=== PATIENT | female | born 1960 | race Caucasian/White ===

== ENCOUNTER 2022-03-04 06:46 | Day surgery (SDC) | payer OTHER ==
[~2022-03-04] VITALS: Ht 160 cm; Wt 105.0 kg
[~2022-03-04 06:46] MED LIST: SODIUM CHLORIDE 0.9% 1,000 ML ONE
[2022-03-04] MEDS ORDERED: LIDOCAINE 4% 50 ML SOLUTION TP ONE (06:47)
[2022-03-04] MEDS ORDERED: BENZOCAINE 20% 50 MCG/SPRAY 57 GM TP ONE (06:47)
[2022-03-04] MEDS ORDERED: LIDOCAINE 2% 11 ML JELLY TP ONE (06:47)
[2022-03-04] MEDS ORDERED: ALBUTEROL SULFATE 2.5 MG/0.5 ML NEB SOLUTION NEB ONE (06:47)
[2022-03-04 07:08] LABS: COVID AG,FIA SOURCE NASAL SWAB
[2022-03-04] MEDS ORDERED: FentaNYL CITRATE PF 100 MCG/2 ML VIAL ONE (07:51)
[2022-03-04] MEDS ORDERED: MIDAZOLAM HCL 5 MG/ML VIAL ONE (07:52)
[2022-03-04] MEDS ORDERED: SODIUM CHLORIDE 0.9% 1,000 ML IV ONE (08:00)
[2022-03-04 08:01] LABS: GLUCOMETER DEV NAME(LOC) SDS.; GLUCOSE,POINT OF CARE 170 MG/DL (70-110)
[2022-03-04] MEDS ORDERED: ATOR40TA28 PO (08:01)
[2022-03-04] MEDS ORDERED: HYDR25TA2 PO (08:01)
[2022-03-04] MEDS ORDERED: MONT-35 PO (08:01)
[2022-03-04] MEDS ORDERED: DULA3PEN SQ (08:01)
[2022-03-04] MEDS ORDERED: ESCI-8 PO (08:01)
[2022-03-04] MEDS ORDERED: LEVO100 PO (08:01)
[2022-03-04] MEDS ORDERED: FLUT16H NASAL (08:01)
[2022-03-04] MEDS ORDERED: LORA10TA7 PO (08:01)
[2022-03-04] MEDS ORDERED: FURO20 PO (08:01)
[2022-03-04] MEDS ORDERED: LISI-893 PO (08:01)
[2022-03-04] MEDS ORDERED: ALBU8HFA IH (08:01)
[2022-03-04] MEDS ORDERED: MethylPREDNISolone SOD SUCC 125 MG/2 ML VIAL IVP ONE (09:15)
[2022-03-04] MEDS ORDERED: MethylPREDNISolone SOD SUCC 125 MG/2 ML VIAL ONE (10:02)
[2022-03-04] MEDS ORDERED: OXYGEN THERAPY IH SCH (20:00)
== END 2022-03-04 11:10 | disposition home or self-care (01) ==
LOC: SURGERY 06:46
PROVIDERS: ATTEND Internal Medicine Critical Care Medicine
DX: J38.4 Edema of larynx (principal); E03.9 Hypothyroidism, unspecified; B37.0 Candidal stomatitis; Z79.899 Other long term (current) drug therapy; Z98.890 Other specified postprocedural states
CPT/HCPCS: 31623; 82962; 87206; 87101; 87220; 87070; 88108; 88305; 88312; 31624; 94640; 71045; 87015; 87426; J3010; J2930; J2250; Q9967; J7030; C9803; J7613; Z7610

== ENCOUNTER 2024-05-17 06:34 | Day surgery (SDC) | payer OTHER ==
[~2024-05-17] VITALS: Ht 160 cm; Wt 100.0 kg
[~2024-05-17 06:34] MED LIST changes: +ALBU18HF12 IH; +ATOR40TA28 PO; +ESCI-8 PO; +FLUT16SP NASAL; +FURO20TA5 PO; +HYDR25TA2 PO; +LEVO100 PO; +LISI-893 PO; +MONT-35 PO
[2024-05-17] MEDS ORDERED: ALBUTEROL SULFATE 2.5 MG/0.5 ML NEB SOLUTION NEB ONE (06:35)
[2024-05-17] MEDS ORDERED: LIDOCAINE 4% 50 ML SOLUTION TP ONE (06:35)
[2024-05-17] MEDS ORDERED: BENZOCAINE 20% 50 MCG/SPRAY 57 GM TP ONE (06:35)
[2024-05-17] MEDS ORDERED: LIDOCAINE 2% 11 ML JELLY TP ONE (06:35)
[2024-05-17 07:41] LABS: GLUCOMETER DEV NAME(LOC) SDS.; GLUCOSE,POINT OF CARE 158 MG/DL (70-110)
[2024-05-17] MEDS: SODIUM CHLORIDE 0.9% 1,000 ML IV ONE (08:00)
[2024-05-17] MEDS ORDERED: EPINEPHrine 1:10,000 [1 MG/10 ML] SYRINGE ONE (08:11)
[2024-05-17] MEDS ORDERED: NALOXONE HCL 0.4 MG/ML VIAL ONE (08:11)
[2024-05-17] MEDS ORDERED: SODIUM TETRADECYL SULFATE 3% 60 MG/2 ML VIAL IVP ONE (08:11)
[2024-05-17] MEDS ORDERED: DiphenhydrAMINE HCL 50 MG/ML VIAL ONE (08:11)
[2024-05-17] MEDS ORDERED: FLUMAZENIL 0.1 MG/ML 5 ML VIAL IVP ONE (08:11)
[2024-05-17] MEDS ORDERED: ATROPINE SULFATE 0.1 MG/ML 10 ML SYRINGE IVP ONE (08:12)
[2024-05-17] MEDS ORDERED: MIDAZOLAM HCL 2 MG/2 ML VIAL ONE (08:37)
[2024-05-17] MEDS ORDERED: FentaNYL CITRATE PF 100 MCG/2 ML VIAL ONE (08:37)
[2024-05-17 09:28] VITALS: PULSE 77; RESP 18; O2SAT 98
[2024-05-17] MEDS ORDERED: MethylPREDNISolone SOD SUCC 125 MG/2 ML VIAL ONE (09:49)
[2024-05-17] MEDS: MethylPREDNISolone SOD SUCC 125 MG/2 ML VIAL IVP ONE (09:51)
== END 2024-05-17 10:50 | disposition home or self-care (01) ==
LOC: SURGERY 06:34
PROVIDERS: ATTEND Internal Medicine Critical Care Medicine
DX: J38.4 Edema of larynx (principal); B37.0 Candidal stomatitis; J44.9 Chronic obstructive pulmonary disease, unspecified; I10 Essential (primary) hypertension; Z88.2 Allergy status to sulfonamides; Z79.899 Other long term (current) drug therapy; Z98.890 Other specified postprocedural states
CPT/HCPCS: 31623; 82962; 87206; 87101; 87220; 87070; 88108; 31624; 94640; 71045; 87015; J3010; J2250; J2919; J7030; J0171; J0461; J1200; J2310; J3490; J7613; Z7610